=== PATIENT | male | born 1960 | race Caucasian/White ===

== ENCOUNTER 2017-01-19 14:10 | Inpatient (IN) ==
[2017-01-19] MEDS: DOPamine 800 MG/250 ML PREMIX IV SCH (14:25)
--- NOTE | 2017-01-19 15:19 | Emergency Department Note ---
IBhupendra Brooke, am scribing for, and in the presence of, Gabbi Bourgeois DO 15:17 . IBk Debra, DO, personally performed the services described in this documentation, ascribed by Radha Huizar in my presence, and it is both accurate and complete 519 . Arrival - Arrival Chief Complaint: Non-Specific Stated Complaint: hypotension ED Nursing Triage Note: pt was picked up from home with a b/p of 42/24. given one liter by ems. at outside facility pt was started on dopamine drip. 10mcg/kg/ min upon arrival. Mode of Arrival: Stretcher Limitations: Language Barrier (Non-verbal) Source: Patient, Family (Sister) Time Seen by Provider: 01/19/17 15:00 - History of Present Illness HPI Narrative: Patient is a 57 year old male brought into the ED by EMS, from [facility], with c/o low blood pressure. 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 His sister is in the room with him and giving the history. Sister says, on Sunday, he had an episode of dizziness and shaking. He went to see Dr. Hunt at [facility], yesterday, and he was having a difficult time urinating. Sister says when he finally did urinate, there was blood in it. He was sent here and seen in Non-Urgent and prescribed Cipro. This morning, Sister says the sitter reported that Patient became pale, started shaking, vomiting ,and then became lethargic. Sitter called EMS and upon arrival Patient's blood pressure was 42/ 24. EMS gave him Levaquin 750 and some fluids. Once he arrived at [facility], he was given Dopamine IV. His blood pressure upon arrival to the ED was 80/52. He has PMHx of HTN, hole in heart, depression, peripheral neuropathy, constipation, and chronic back pain. He has a pump to the [facility] where he receives Baclofin. Sister says the Baclofin was increased 20% yesterday. Allergies/Adverse Reactions: Allergies Allergy/AdvReac Type Severity Reaction Status Date / Time No Known Allergies Allergy Verified 04/25/16 10:42 Home Medications: Home Medications Medication Instructions Recorded Confirmed Type Aspirin [Ecotrin] 81 mg PO DAILY 04/17/16 01/18/17 History Tizanidine HCl [Zanaflex] 4 mg PO Q8H PRN 04/17/16 01/18/17 History Amlodipine Besylate 2.5 mg PO DAILY 01/18/17 01/18/17 History Baclofen [Baclofen] 10 mg PO TID PRN 01/18/17 01/18/17 History Ciprofloxacin HCl [Ciprofloxacin 500 mg PO BID #20 tablet 01/18/17 Rx Tab] Docusate Sodium 100 mg PO DAILY PRN 01/18/17 01/18/17 History Lisinopril [Lisinopril] 40 mg PO DAILY 01/18/17 01/18/17 History Methylphenidate HCl 15 mg PO DAILY 01/18/17 01/18/17 History [Methylphenidate Tab] Sertraline [Zoloft] 50 mg PO DAILY 01/18/17 01/18/17 History Temazepam [Restoril] 15 mg PO BEDTIME 01/18/17 01/18/17 History buPROPion HCl [Bupropion Xl] 150 mg PO DAILY 01/18/17 01/18/17 History Review of System - Review of System ROS unobtainable: other (Non-verbal) - Review of System Constitutional: Absent: fever Respiratory: Absent: respiratory distress Cardiovascular: Present: other (hypotension) Gastrointestinal: Present: vomiting Skin: Absent: rash Neurological: Present: other (dizziness) Medical,Surgical,& Family Hx - Medical History Cardio: History of: Hypertension, Cardiovascular Problems (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 DR HUNT.) Other: History of: Miscellaneous Medical Problems (DIS Pump with Baclofen PLS) - Surgical History Cardiac Surgeries: Sugical HX of: Cardiac Catheterization Abdominal Surgeries: Surgical HX of: Colonoscopy Orthopedic Surgeries: Surgical HX of;: Orthopedic Surgery (RT KNEE SCOPE) - Social History Smoking Status: Former smoker Frequency of Alcohol Use: None Type of Drug Use: None Exam Vital Signs: Vital Signs Temperature 97 F L 01/19/17 14:12 Pulse Rate 18 L 01/19/17 16:00 Respiratory Rate 18 01/19/17 16:00 Blood Pressure 99/65 01/19/17 16:00 O2 Sat by Pulse Oximetry 94 L 01/19/17 16:00 - General Exam limited due to: language barrier (Non-verbal) General appearance: alert, in no apparent distress - Head Head exam: Present: atraumatic, normocephalic - Eye Eye exam: Present: normal appearance, PERRL, EOMI - ENT ENT exam: Present: normal exam - Neck Neck exam: Present: normal inspection - Chest Chest inspection: Present: normal inspection, symmetric chest wall rise - Respiratory Respiratory exam: Present: normal lung sounds bilaterally - Cardiovascular Cardiovascular exam: Present: regular rate, normal rhythm - Abdominal Exam Abdominal exam: Present: soft, other (Baclofin pump RUQ). Absent: distention, tenderness - Extremities Exam Extremities exam: Present: normal inspection - Back Exam Back exam: Present: normal inspection - Neurological Exam Neurological exam: Present: alert - Skin Skin exam: Present: warm, dry, intact, normal color Course Course Narrative: spoke with hospitalist for admission for possible sepsis. uti. Disposition Clinical Impression: Urinary tract infection Case discussed with: patient Disposition: Still a Patient Condition: Stable Time of Disposition: 16:14
[2017-01-19] MEDS ORDERED: BACLOFEN 10 MG TABLET PO ONE (15:29)
[2017-01-19] MEDS ORDERED: ACETAMINOPHEN 325 MG TABLET PO PRN (17:14)
[2017-01-19] MEDS ORDERED: ONDANSETRON 4 MG/2 ML VIAL IV PRN (17:14)
[2017-01-19] MEDS ORDERED: ALBUTEROL 2.5 MG/3 ML NEB RESP TX PRN (17:14)
[2017-01-19] MEDS ORDERED: SODIUM CHLORIDE 0.9% 2,400 ML IV ONE (17:16)
--- NOTE | 2017-01-19 17:43 | Hospitalist History & Physical ---
<Sweetie Rosen - Last Filed: 01/19/17 17:41> Assessment and Plan (1) Hypotension Status: Acute Current Visit: Yes (2) Urinary tract infection Status: Acute Current Visit: Yes (3) Primary lateral sclerosis Status: Acute Current Visit: No History of Present Illness History of present illness: Mr. Osborn is a 57 year old male Home Medications Medication Instructions Recorded Confirmed Type Aspirin [Ecotrin] 81 mg PO DAILY 04/17/16 01/19/17 History Tizanidine HCl [Zanaflex] 4 mg PO Q8H PRN 04/17/16 01/19/17 History Amlodipine Besylate 2.5 mg PO DAILY 01/18/17 01/19/17 History Baclofen [Baclofen] 10 mg PO TID PRN 01/18/17 01/19/17 History Ciprofloxacin HCl [Ciprofloxacin 500 mg PO BID #20 tablet 01/18/17 01/19/17 Rx Tab] Docusate Sodium 100 mg PO DAILY PRN 01/18/17 01/19/17 History Lisinopril [Lisinopril] 40 mg PO DAILY 01/18/17 01/19/17 History Methylphenidate HCl 15 mg PO DAILY 01/18/17 01/19/17 History [Methylphenidate Tab] Sertraline [Zoloft] 50 mg PO DAILY 01/18/17 01/19/17 History Temazepam [Restoril] 15 mg PO BEDTIME 01/18/17 01/19/17 History buPROPion HCl [Bupropion Xl] 150 mg PO DAILY 01/18/17 01/19/17 History Allergies Allergy/AdvReac Type Severity Reaction Status Date / Time No Known Allergies Allergy Verified 04/25/16 10:42 Medical,Surgical,& Family Hx - Medical History Cardio: History of: Hypertension, Cardiovascular Problems (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 DR HUNT.) Other: History of: Miscellaneous Medical Problems (DIS Pump with Baclofen PLS) - Surgical History Cardiac Surgeries: Sugical HX of: Cardiac Catheterization Abdominal Surgeries: Surgical HX of: Colonoscopy Orthopedic Surgeries: Surgical HX of;: Orthopedic Surgery (RT KNEE SCOPE) - Social History Smoking Status: Former smoker Frequency of Alcohol Use: None Type of Drug Use: None Exam - Constitutional Vitals: Period Temp Pulse Resp BP Sys/Lopez Pulse Ox Last 24 Hr 79 16 102/67 97 Results - Labs Labs: Labs reviewed from outside facility WBC 16.6 H/H 12.1 35.7 <Clark Alcantara - Last Filed: 01/19/17 18:50> Assessment and Plan (1) Sepsis Status: Acute Assessment and plan: Patient was given Levaquin in the emergency department. Rocephin has been added. Follow-up cultures. Likely source is urinary. Current Visit: Yes (2) Urinary tract infection Status: Acute Assessment and plan: Follow-up urine culture collected in the emergency department yesterday. Patient receiving Levaquin and Rocephin. Current Visit: Yes (3) Primary lateral sclerosis Status: Chronic Assessment and plan: Patient on multiple Antispas stick medications including baclofen and other muscle relaxants Current Visit: No History of Present Illness Chief complaint: dizziness, low BP, vomiting History of present illness: Mr. Osborn is a 57 year old male with a history of primary lateral sclerosis and presented to the emergency department in [facility] with worsening dizziness and vomiting with low blood pressure. The patient is nonverbal and accompanied by his sister who is a nurse. She reports that her brother has urinary tract infection that started a few days ago and was treated with Cipro however he has not improved. He began to have significant dizziness with nausea and vomiting and was found to have low blood pressure was brought to the emergency department for further evaluation and treatment. He was found to be very hypotensive and was given IV fluids and started on dopamine. His symptoms are severe, persistent and progressive. His sister also reports a 20 pound weight loss over the last month with decreased oral intake. The patient is able to chew and swallow his food but needs assistance with feedings. She also reports that he has 2 wounds on his buttock that are clean stage II wounds without drainage and do not appear infected. Patient denies any pain or complaints. At the time of my evaluation he was on dopamine and had a blood pressure systolic 100. Throughout this acute illness, the patient has not been tachycardic and is in normal sinus rhythm with a rate in the 60s-70s. Of note the patient also has an implanted baclofen pump which has been increased by his automotive painter over the last 48 hours. This may also be contributing to his hypotension however his symptoms began on Sunday, before his baclofen pump was accessed or increased. At this time I feel the patient has sepsis secondary to urinary tract infection and the sepsis protocols will be followed including fluid bolus and lactic acid testing which was not performed at the outlying facility or in our emergency department. Medical,Surgical,& Family Hx - Social History Marital Status: Lives With:: Sibling Functional capacity: wheelchair bound 12 point system: reviewed and no additional remarkable complaints except as stated - Constitutional Constitutional: Present: anorexia, chills, fever(s) - Gastrointestinal Gastrointestinal: Present: vomiting Exam - Constitutional Vitals: Period Temp Pulse Resp BP Sys/Lopez Pulse Ox Last 24 Hr 79 16 102/67 97 Exam: Constitutional System: Mild distress. No tremulousness. Patient is nonverbal. Head: Normocephalic, atraumatic. Ears, Nose and Throat System: No pain or tenderness. No epistaxis or discharge Eyes System: Pupils equal, round, and reactive. Extraocular muscles intact. Neck: Supple, without adenopathy, No jugular venous distention. Respiratory System: Chest clear to auscultation. Cardiovascular System: Heart with regular rate and rhythm. No murmur. GI System: Abdomen soft, nontender. Normo active bowel sounds present. Musculoskeletal System: limbs with no pedal edema. Full distal pulses. Neurological System: Spasticity noted. Limited mobility. Psychiatric System: Patient is nonverbal. Results - Labs Lab Results: I have reviewed the past 24 hour labs Sepsis - Sepsis Classification of Sepsis: Severe Sepsis - Physical Exam Respiratory exam: clear to auscultation bilaterally Capillary Refill: Less Than 3 Seconds Peripheral pulses: Radial (L): 3+/4+, Radial (R): 3+/4+, Dorsalis Pedis (L) PM: 3+/4+, Dorsalis Pedis (R) PM: 3+/4+, Posterior Tibialis (L): 3+/4+, Posterior Tibialis (R): 3+/4+ Cardiovascular exam: regular rate and rhythm Skin exam: normal color
[2017-01-19 18:04] LABS: Apearance,Urine CLOUDY (Clear); Bacteria,Urine Occasional /HPF (Few); Bilirubin,Urine Negative (Negative); Blood, Urine Large mg/dL (Negative); Glucose,Urine (UA) Negative (Negative); Ketones,Urine Negative (Negative); Nitrite,Urine Negative (Negative); Protein,Urine 30 MG/DL; RBC,Urine 2 /HPF (0-4); Squamous Epithelial Cell,Urine Occasional /HPF (0-10); Urine Color Yellow (Yellow); Urine Specific Gravity 1.003 (1.001-1.035); Urine Urobilinogen < 2.0 EU/DL (0.2-1.0); WBC,Urine 29 /HPF (0-6)
[2017-01-19] MEDS: cefTRIAXone 1,000 MG in SODIUM CHLORIDE 0.9% 100 ML IV SCH (18:31)
[2017-01-19] MEDS: tiZANidine 4 MG TABLET PO PRN (18:31)
[2017-01-19] MEDS: FAMOTIDINE 20 MG/2 ML VIAL IV SCH (18:31)
[2017-01-19] MEDS: BACLOFEN 10 MG TABLET PO PRN (18:31)
[2017-01-19] MEDS: LACTATED RINGERS 1,000 ML IV SCH (18:42)
[2017-01-19] MEDS: ENOXAPARIN 40 MG/0.4 ML SYRINGE SUBCUT SCH (22:00)
[2017-01-19] MEDS: TEMAZEPAM 15 MG CAPSULE PO SCH (22:00)
[2017-01-20] MEDS: LACTATED RINGERS 1,000 ML IV SCH ×4 (02:58→22:08)
[2017-01-20 05:45] LABS: Basophils % 0.1 % (0.0-0.8); Hemoglobin 12.2 GM/DL (14.0-18.0); Immature Granulocytes % 0.9 %; Immature Granulocytes Absolute 0.15 #; Mean Corpuscular HGB Conc 33.9 GM/DL (32-36); Mean Corpuscular Hemoglobin 28 PG (27-34); Mean Corpuscular Volume 81.1 FL (87-102); Mean Platelet Volume 9.5 FL (9.6-12.0); Monocytes % 6.1 % (1.7-12.7); Neutrophils # 14.3 10*3/uL (1.4-7.4); Neutrophils % 86.9 % (38.7-73.9); Platelet Count 261 T/CUMM (130-400); Red Blood Count 4.44 MC/CUMM (3.8-5.5); Red Cell Distribution Width 13.3 % (9.3-17.3); White Blood Count 16.5 T/CUMM (4-12)
[2017-01-20] MEDS: FAMOTIDINE 20 MG/2 ML VIAL IV SCH ×2 (06:15→18:21)
[2017-01-20 06:18] LABS: Albumin 2.9 G/DL (3.4-5.0); Bilirubin,Total 0.5 MG/DL (0.2-1.0); Calcium 9.8 MG/DL (8.5-10.1); Magnesium 2.1 MG/DL (1.8-2.4); Osmolality,Calculated 294.6 MOS/KG (273-304); Potassium 4.4 MMOL/L (3.5-5.1); Total Protein 5.7 G/DL (6.4-8.3)
[2017-01-20] MEDS: DOPamine 800 MG/250 ML PREMIX IV SCH ×2 (06:23→19:46)
[2017-01-20 07:56] LABS: Band Neutrophils 12 % (0-10); Burr Cells Slight; Hypochromasia Slight; Lymphocytes 5 % (20-55); Platelet Estimate Adequate; Segmented Neutrophils 82 % (50-85); Total Cells Counted 100
[2017-01-20] MEDS: ASPIRIN EC 81 MG TABLET PO SCH (08:59)
[2017-01-20] MEDS: buPROPion XL 150 MG TABLET PO SCH (08:59)
[2017-01-20] MEDS: SERTRALINE 50 MG TABLET PO SCH (09:00)
--- NOTE | 2017-01-20 10:07 | Hospitalist Progress Note ---
Assessment and Plan (1) Urinary tract infection Status: Acute Assessment and plan: Discussion with microbiology patient is going gram-positive cocci in the urine no report of blood growth at this time. Patient remains on dopamine. Latest blood pressure drop was primary from the infection or any other causes including autonomic dyscontrol it is not clear at this time. Continue dopamine. Verify isolate. Blood cultures. Current Visit: Yes (2) Hypotension Status: Acute Assessment and plan: Continue dopamine. As of now mean arterial pressures above 65. Patient is awake not able to communicate. Current Visit: Yes (3) Sepsis Status: Acute Assessment and plan: To set of blood cultures drawn on vancomycin to the ceftriaxone. Get consultation with the pharmacy for vancomycin pharmacokinetics. Current Visit: Yes (4) Primary lateral sclerosis Status: Chronic Assessment and plan: Continue supportive care. Current Visit: No Hospitalist: Subjective Interval history: Patient is seen and examined and chart has been reviewed. He cannot phonate words. History of 4 primary lateral sclerosis with significant compromise. Family member at the bedside is answering most of the questions. He was admitted to the hospital with hypotension and known urinary tract infection. As of now, cultures on the urine is no growth. Unfortunately Gram stain is not usually done to direct the treatment.. Discussion with microbiology laboratory at the plate seems to be demonstrating gram-positive cocci growing. Final identification is pending. Exam - Constitutional Vitals: Period Temp Pulse Resp BP Sys/Lopez Pulse Ox Last 24 Hr 97.5 F-98.2 F 50-79 9-22 74-144/44-80 94-100 General appearance: normal weight - Head Head exam: Present: normocephalic, atraumatic - Eye Eye exam: Present: EOMI Pupils: Present: PATRICIA - ENT ENT exam: Present: normal exam, other (Patient cannot phonate due to his neurologic deficit is from lateral sclerosis) - Neck Neck exam: Present: other (No JVD no adenopathy) - Respiratory Respiratory exam: Present: other (Poor inspiratory pool) - Cardiovascular Cardiovascular exam: Present: regular rate and rhythm - GI/Abdominal GI/Abdominal exam: Present: normal bowel sounds, soft - Extremities Exam Extremities exam: Present: other (Generalized weakness patient has generalized neurologic deficits from lateral sclerosis) Results - Labs CBC & BMP: 01/20/17 05:13 01/20/17 05:13 Lab Results: I have reviewed the past 24 hour labs (Noted leukocytosis modest chronic anemia. Urine culture growing gram-positive cocci finally)
[2017-01-20] MEDS: VANCOMYCIN INJ 750 MG in SODIUM CHLORIDE 0.9% 250 ML IV SCH (12:35)
[2017-01-20] MEDS: METHYLPHENIDATE PO SCH (12:35)
[2017-01-20] MEDS: cefTRIAXone 1,000 MG in SODIUM CHLORIDE 0.9% 100 ML IV SCH (18:21)
[2017-01-20] MEDS: ENOXAPARIN 40 MG/0.4 ML SYRINGE SUBCUT SCH (22:03)
[2017-01-20] MEDS: TEMAZEPAM 15 MG CAPSULE PO SCH (22:03)
[2017-01-21] MEDS: VANCOMYCIN INJ 750 MG in SODIUM CHLORIDE 0.9% 250 ML IV SCH ×2 (00:15→12:08)
[2017-01-21] MEDS: BACLOFEN 10 MG TABLET PO PRN ×2 (00:18→20:52)
[2017-01-21] MEDS: tiZANidine 4 MG TABLET PO PRN ×2 (00:18→20:52)
[2017-01-21] MEDS: LACTATED RINGERS 1,000 ML IV SCH ×4 (02:25→16:43)
[2017-01-21] MEDS: FAMOTIDINE 20 MG/2 ML VIAL IV SCH ×2 (06:22→16:33)
--- NOTE | 2017-01-21 09:23 | Hospitalist Progress Note ---
Assessment and Plan (1) Urinary tract infection Status: Acute Assessment and plan: Discussion with microbiology patient is going gram-positive cocci in the urine no report of blood growth at this time. Patient remains on dopamine. Latest blood pressure drop was primary from the infection or any other causes including autonomic dyscontrol it is not clear at this time. Continue dopamine. Verify isolate. Blood cultures. Current Visit: Yes Qualifiers: Urinary tract infection type: acute cystitis Hematuria presence: without hematuria Qualified Code(s): N30.00 - Acute cystitis without hematuria (2) Hypotension Status: Acute Assessment and plan: Continue dopamine. Attempt to taper the dopamine. If the patient tolerates being off dopamine she can be transferred to [facility]. We will try to assess for other sites of infection including low respiratory tract. Gentleman does have neurologic condition therefore aspiration is a high risk. Current Visit: Yes (3) Sepsis Status: Acute Assessment and plan: To set of blood cultures drawn on vancomycin to the ceftriaxone. Get consultation with the pharmacy for vancomycin pharmacokinetics. Current Visit: Yes (4) Primary lateral sclerosis Status: Chronic Assessment and plan: Continue supportive care. Try feeding today. I am informed she is able to get some liquids should not have problems solid foods. If there is any suggestion of swallowing problem will get speech therapy evaluation. Current Visit: No Hospitalist: Subjective Interval history: Patient has been seen and examined today. No distress noted. No family members at the bedside during the time of evaluation. Normal admitted to the hospital with hypotension thought to have urinary tract infection and urosepsis was suspected. The only thing that grew on urine was a gram-positive cocci that at this point is pending evaluation. Clinically patient seemed to be mentating well on lower doses of pressors. These will continue to be tapered down and if he cannot tolerate blood pressures without precedent transferring him to [facility] will be appropriate. He maintains a leukocytosis of 16.5 today no obvious signs of infection declared other than what was suspected of admission. Should be noted over that the patient is on dopamine margination can happen or other sympathomimetic noticed that he is on Ringer's lactate. Want him to advance on meals. If there is any swallowing problems and speech therapy should be involved. The gentleman should also have a chest x-ray to evaluate for lower respiratory infection. Exam - Constitutional Vitals: Period Temp Pulse Resp BP Sys/Lopez Pulse Ox Last 24 Hr 97.9 F-98.9 F 51-80 8-25 87-137/46-86 93-100 General appearance: normal weight, no acute distress - Head Head exam: Present: normocephalic, atraumatic - Eye Eye exam: Present: EOMI Pupils: Present: PATRICIA - ENT ENT exam: Present: normal oropharynx - Neck Neck exam: Present: normal inspection - Respiratory Respiratory exam: Present: clear to auscultation bilaterally, other (Poor inspiratory pool) - Cardiovascular Cardiovascular exam: Present: regular rate and rhythm - GI/Abdominal GI/Abdominal exam: Present: normal bowel sounds, soft - Extremities Exam Extremities exam: Present: other (Generalized weakness patient has lateral sclerosis (Miley Gehrig's disease)) - Neurological Exam Neurological exam: Present: other (Miley Gehrig's disease (primary lateral sclerosis)) - Psychiatric Psychiatric exam: Present: other (Subdued affect the patient cannot communicate. He is to recept well.) - Skin Skin exam: Present: normal color, warm, dry Results - Labs CBC & BMP: 01/20/17 05:13 01/20/17 05:13 Lab Results: I have reviewed the past 24 hour labs
--- NOTE | 2017-01-21 09:44 | XRay Report ---
XR chest 1V portable Indication: Pneumonia Comparison: 27 June 2016 Findings: The heart and mediastinum are normal in size and configuration. The pulmonary vascularity is normal in caliber. No lung infiltrates, effusions, pneumothorax or other abnormality is demonstrated. Impression: No acute cardiopulmonary findings. PROCEDURE INTERPRETED AT [facility] DEPARTMENT OF RADIOLOGY Final Report Signed by: Dr. Mohinder Subramanian
[2017-01-21] MEDS: SERTRALINE 50 MG TABLET PO SCH (09:51)
[2017-01-21] MEDS: ASPIRIN EC 81 MG TABLET PO SCH (09:51)
[2017-01-21] MEDS: buPROPion XL 150 MG TABLET PO SCH (09:51)
[2017-01-21] MEDS: METHYLPHENIDATE PO SCH (09:51)
[2017-01-21] MEDS: DOPamine 800 MG/250 ML PREMIX IV SCH (15:17)
[2017-01-21] MEDS: cefTRIAXone 1,000 MG in SODIUM CHLORIDE 0.9% 100 ML IV SCH (16:33)
[2017-01-21] MEDS: ENOXAPARIN 40 MG/0.4 ML SYRINGE SUBCUT SCH (20:52)
[2017-01-21] MEDS: TEMAZEPAM 15 MG CAPSULE PO SCH (20:55)
[2017-01-22] MEDS: VANCOMYCIN INJ 750 MG in SODIUM CHLORIDE 0.9% 250 ML IV SCH (00:01)
[2017-01-22] MEDS: LACTATED RINGERS 1,000 ML IV SCH ×2 (00:06→03:35)
[2017-01-22 04:48] LABS: Basophils % 0.3 % (0.0-0.8); Eosinophils # 0.1 10*3/uL (0.0-0.87); Eosinophils % 1.7 % (0.00-10.9); Hematocrit 30.5 VOL% (42.0-52.0); Hemoglobin 10.3 GM/DL (14.0-18.0); Immature Granulocytes % 0.5 %; Immature Granulocytes Absolute 0.03 #; Lymphocytes # 1.7 10*3/uL (1.4-4.0); Mean Corpuscular HGB Conc 33.8 GM/DL (32-36); Mean Corpuscular Hemoglobin 27 PG (27-34); Mean Corpuscular Volume 80.9 FL (87-102); Monocytes # 0.7 10*3/uL (0.11-0.8); Monocytes % 9.9 % (1.7-12.7); Neutrophils % 61.6 % (38.7-73.9); Platelet Count 208 T/CUMM (130-400); Red Blood Count 3.77 MC/CUMM (3.8-5.5); Red Cell Distribution Width 13.7 % (9.3-17.3); White Blood Count 6.6 T/CUMM (4-12)
[2017-01-22 05:27] LABS: Calcium 8.6 MG/DL (8.5-10.1); Magnesium 1.8 MG/DL (1.8-2.4); Osmolality,Calculated 288.7 MOS/KG (273-304)
[2017-01-22] MEDS ORDERED: POTASSIUM CHLORIDE 20 MEQ TABLET PO ONE (05:53)
[2017-01-22] MEDS: FAMOTIDINE 20 MG/2 ML VIAL IV SCH ×2 (05:54→17:36)
[2017-01-22] MEDS: buPROPion XL 150 MG TABLET PO SCH (08:36)
[2017-01-22] MEDS: SERTRALINE 50 MG TABLET PO SCH (08:36)
[2017-01-22] MEDS: ASPIRIN EC 81 MG TABLET PO SCH (08:36)
--- NOTE | 2017-01-22 08:44 | Hospitalist Progress Note ---
Assessment and Plan (1) Urinary tract infection Status: Acute Assessment and plan: Today microbiology reports has consumed MRSA as the organism in the urine obtained at admission. Clinically patient is doing well he is off pressors. He has been on vancomycin which will continue for now until we verify clearance of the infection in the urine. A repeat urinalysis and urine culture be done today. Patient does have MRSA in the nares. Mupirocin will be instilled in the nares for 14 days per month 3 months consecutively. Current Visit: Yes Qualifiers: Urinary tract infection type: acute cystitis Hematuria presence: without hematuria Qualified Code(s): N30.00 - Acute cystitis without hematuria (2) Hypotension Status: Acute Assessment and plan: Patient is currently on pressors with a robust blood pressure. He is awake does try to interact. She will be transferred to a monitored bed at this point. Current Visit: Yes (3) Sepsis Status: Acute Assessment and plan: This is currently resolved. Patient did have MRSA in the urine at admission will verify clearance of the urine with repeat cultures. Need vancomycin for the meantime discontinue ceftriaxone. She will be transferred to a monitored bed. Current Visit: Yes (4) Primary lateral sclerosis Status: Chronic Assessment and plan: Continue supportive care. Try feeding today. I am informed she is able to get some liquids should not have problems solid foods. If there is any suggestion of swallowing problem will get speech therapy evaluation. Current Visit: No Hospitalist: Subjective Interval history: Patient has been seen interviewed and examined and chart has been reviewed. Finally we got microbiology identification of urine infection which is MRSA. Patient's renal function is normal. I plan to repeat a urine assessment today with urinalysis and urine culture again. I will leave him on vancomycin in the meantime discontinue the ceftriaxone is noted swabs are positive for MRSA. Patient will be started on mupirocin 1 application to anterior nares for 14 days a month 3 months consecutively. That information that prior to admission patient's baclofen was also increased by 20%. Whether this contributed to issues of hypertension can be considered. He has a pump in which baclofen is being instilled for spasms. Exam - Constitutional Vitals: Period Temp Pulse Resp BP Sys/Lopez Pulse Ox Last 24 Hr 97.6 F-99.0 F 53-95 12-26 90-144/50-90 93-99 General appearance: normal weight - Head Head exam: Present: normocephalic, atraumatic - Eye Eye exam: Present: EOMI Pupils: Present: PATRICIA - ENT ENT exam: Present: normal exam - Neck Neck exam: Present: normal inspection - Respiratory Respiratory exam: Present: clear to auscultation bilaterally - Cardiovascular Cardiovascular exam: Present: regular rate and rhythm - GI/Abdominal GI/Abdominal exam: Present: normal bowel sounds, soft - Extremities Exam Extremities exam: Present: other (Generalized weakness patient does have lateral sclerosis some spasms associated with this.) - Neurological Exam Neurological exam: Present: other (Patient does have good medical receptionist where expression is hampered by lateral sclerosis.) - Psychiatric Psychiatric exam: Present: other (Will smile and try to respond to you but there is no phonation) - Skin Skin exam: Present: normal color, warm, dry Results - Labs CBC & BMP: 01/22/17 04:23 01/22/17 04:23 Lab Results: I have reviewed the past 24 hour labs (Noted hypokalemia of 3.0 magnesium of 1.8. Will supplement potassium per protocol)
[2017-01-22] MEDS ORDERED: SKIN HEALING OINT (AQUAPHOR) 50 GM TUBE TOP PRN (11:30)
[2017-01-22] MEDS: VANCOMYCIN INJ 1,000 MG in SODIUM CHLORIDE 0.9% 250 ML IV SCH (12:22)
[2017-01-22] MEDS: METHYLPHENIDATE PO SCH (12:22)
[2017-01-22] MEDS: MUPIROCIN 2% OINT 22 GM TUBE TOP SCH ×2 (12:22→22:00)
[2017-01-22 16:40] LABS: Apearance,Urine CLEAR (Clear); Bacteria,Urine Occasional /HPF (Few); Bilirubin,Urine Negative (Negative); Blood, Urine Moderate mg/dL (Negative); Glucose,Urine (UA) Negative (Negative); Ketones,Urine Negative (Negative); Mucus,Urine Occasional /LPF (Occasional); Nitrite,Urine Negative (Negative); Protein,Urine Negative; RBC,Urine 56 /HPF (0-4); Urine Color Straw (Yellow); Urine Specific Gravity 1.009 (1.001-1.035); Urine Urobilinogen < 2.0 EU/DL (0.2-1.0); WBC,Urine 22 /HPF (0-6)
[2017-01-22] MEDS: DOPamine 800 MG/250 ML PREMIX IV SCH (16:49)
[2017-01-22] MEDS ORDERED: DOCUSATE SODIUM 100 MG CAPSULE PO PRN (18:33)
[2017-01-22] MEDS ORDERED: SODIUM PHOSPHATE ENEMA 133 ML BOTTLE RECTAL ONE (21:46)
[2017-01-22] MEDS: ENOXAPARIN 40 MG/0.4 ML SYRINGE SUBCUT SCH (21:59)
[2017-01-22] MEDS: TEMAZEPAM 15 MG CAPSULE PO SCH (21:59)
[2017-01-23] MEDS: VANCOMYCIN INJ 1,000 MG in SODIUM CHLORIDE 0.9% 250 ML IV SCH ×2 (00:59→11:39)
[2017-01-23] MEDS: FAMOTIDINE 20 MG/2 ML VIAL IV SCH ×2 (05:58→17:06)
[2017-01-23] MEDS: METHYLPHENIDATE PO SCH (09:10)
[2017-01-23] MEDS: SERTRALINE 50 MG TABLET PO SCH (09:10)
[2017-01-23] MEDS: buPROPion XL 150 MG TABLET PO SCH (09:10)
[2017-01-23] MEDS: LACTULOSE 20 GM/30 ML UDCUP PO SCH (09:10)
[2017-01-23] MEDS: MUPIROCIN 2% OINT 22 GM TUBE TOP SCH ×2 (09:10→20:05)
[2017-01-23] MEDS: ASPIRIN EC 81 MG TABLET PO SCH (09:10)
[2017-01-23] MEDS ORDERED: POTASSIUM CHLORIDE RIDER 10 MEQ in PREMIX 1 EACH IV PRN (14:39)
--- NOTE | 2017-01-23 15:37 | Infectious Disease Consult ---
Assessment and Plan (1) Urinary tract infection Status: Acute Assessment and plan: It seems this is improved. He has been afebrile and his leukocytosis has resolved. Recommendations: Agree with use of vancomycin. At any point we can switch to Bactrim double strength 1 tablet twice a day. The patient can complete 7 days of treatment for his urinary tract infection. Thank you very much for the consult. Discussed with mother at bedside. Current Visit: Yes Qualifiers: Urinary tract infection type: acute cystitis Hematuria presence: without hematuria Qualified Code(s): N30.00 - Acute cystitis without hematuria (2) Primary lateral sclerosis Status: Chronic Current Visit: No History of Present Illness Chief complaint: MRSA UTI History of present illness: Mr. Osborn is a 57 year old male With PLS presented to the hospital last Sunday with nausea vomiting and lethargy. He had been diagnosed with a UTI a few days prior and was taking Cipro. The mother is the historian (though a poor one) and she is not sure what was the cause of his UTI. The patient does not have Saldana catheter when he is at home. When he came in he was hypotensive and there was concern for possible sepsis. He was started on empiric broad-spectrum antibiotics. Blood cultures have been negative. 2 urine cultures have come back positive for MRSA. He still on vancomycin and I am asked to advise management. Patient feels much better than when he first came in. He has not had any fever since admission. He communicates with an iPad as he is aphasic. He does understand everything that's said to him however. Home Medications Medication Instructions Recorded Confirmed Type Aspirin [Ecotrin] 81 mg PO DAILY 04/17/16 01/19/17 History Tizanidine HCl [Zanaflex] 4 mg PO Q8H PRN 04/17/16 01/19/17 History Amlodipine Besylate 2.5 mg PO DAILY 01/18/17 01/19/17 History Baclofen [Baclofen] 10 mg PO TID PRN 01/18/17 01/19/17 History Ciprofloxacin HCl [Ciprofloxacin 500 mg PO BID #20 tablet 01/18/17 01/19/17 Rx Tab] Docusate Sodium 100 mg PO DAILY PRN 01/18/17 01/19/17 History Lisinopril [Lisinopril] 40 mg PO DAILY 01/18/17 01/19/17 History Methylphenidate HCl 15 mg PO DAILY 01/18/17 01/19/17 History [Methylphenidate Tab] Sertraline [Zoloft] 50 mg PO DAILY 01/18/17 01/19/17 History Temazepam [Restoril] 15 mg PO BEDTIME 01/18/17 01/19/17 History buPROPion HCl [Bupropion Xl] 150 mg PO DAILY 01/18/17 01/19/17 History Allergies Allergy/AdvReac Type Severity Reaction Status Date / Time No Known Allergies Allergy Verified 04/25/16 10:42 12 point system: reviewed and no additional remarkable complaints except as stated (Per HPI) Medical,Surgical,& Family Hx - Medical History Cardio: History of: Hypertension, Cardiovascular Problems (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 DR HUNT.) Other: History of: Miscellaneous Medical Problems (DIS Pump with Baclofen PLS) - Surgical History Cardiac Surgeries: Sugical HX of: Cardiac Catheterization, Cardiac Surgery ( atrial septal defect repair 07/2015) Abdominal Surgeries: Surgical HX of: Colonoscopy Reproductive Surgeries: Surgical HX of;: Genitourinary Surgery (neurogenic bladder, botox infusion 07/2016) Orthopedic Surgeries: Surgical HX of;: Orthopedic Surgery (RT KNEE SCOPE) - Social History Smoking Status: Former smoker Frequency of Alcohol Use: None Type of Drug Use: None Infectious Disease Exam H&P - Constitutional Vitals: Vital Signs Temp Pulse Resp BP Pulse Ox 98.4 F 62 18 132/80 94 L 01/23/17 12:00 01/23/17 12:00 01/23/17 12:00 01/23/17 12:00 01/23/17 07:38 Intake and Output 01/22/17 01/23/17 01/23/17 23:59 07:59 15:59 Intake Total 240 / 240 250 / 250 570 / 570 Output Total 60 / 60 1000 / 1000 600 / 600 Balance 180 / 180 -750 / -750 -30 / -30 Intake: IV 250 / 250 250 / 250 Vancomycin Inj 1,000 mg 250 / 250 250 / 250 In Ns 250 ml @ 250 mls/hr IV Q12H [facility] Rx#: [id number] Oral 240 / 240 320 / 320 Output: Urine 60 / 60 1000 / 1000 600 / 600 Other: Voiding Method Indwelling Catheter Indwelling Catheter # Bowel Movements 1 Exam: General: Patient relatively comfortable, non-toxic appearing HEENT: Mucous membranes pink and moist, anicteric acyanotic, PATRICIA, no oropharyngeal exudates Neck: Supple, no thyroid gland enlargement, no lymphadenopathy Respiratory system: Breath sounds vesicular, no crepitations or wheezes Cardiovascular: Normal S1 and S2, no murmurs appreciated Abdomen: Normal bowel sounds, soft nontender throughout, no organomegaly or mass Genitourinary: No suprapubic pain or bladder distention, clear urine from Saldana catheter Extremities: no edema Skin: No rash Reports - Labs CBC & BMP: 01/22/17 04:23 01/22/17 04:23 Labs: Laboratory Results - last 24 hr 01/22/17 16:20 Urine Color Straw Urine Appearance Clear Urine pH 6.0 Ur Specific [place] 1.009 Urine Protein Negative Urine Glucose (UA) Negative Urine Ketones Negative Urine Blood Moderate Urine Nitrate Negative Urine Bilirubin Negative Urine Urobilinogen < 2.0 H Urine Leukocytes Moderate H Urine RBC 56 Urine WBC 22 Urine Bacteria Occasional Urine Mucus Occasional Ur Culture Indicated? Results to follow - Reports Microbiology: Microbiology 01/22/17 Unknown Urine Culture - Preliminary Urine,Voided No Growth at 12 hours. 01/20/17 10:38 Blood Culture - Preliminary Blood No growth at 3 days 01/20/17 10:38 Blood Culture - Preliminary Blood No growth at 3 days 01/19/17 17:51 Blood Culture - Preliminary Blood No growth at 3 days 01/19/17 17:51 Blood Culture - Preliminary Blood No growth at 3 days - Diagnostic Findings Procedure: Chest x-ray: report reviewed by me (No acute findings)
[2017-01-23 15:54] LABS: Osmolality,Calculated 287.7 MOS/KG (273-304); Potassium 3.4 MMOL/L (3.5-5.1)
--- NOTE | 2017-01-23 16:57 | Hospitalist Progress Note ---
Assessment and Plan (1) Urinary tract infection Status: Acute Current Visit: Yes Qualifiers: Urinary tract infection type: acute cystitis Hematuria presence: without hematuria Qualified Code(s): N30.00 - Acute cystitis without hematuria (2) Hypotension Status: Acute Current Visit: Yes (3) Sepsis Status: Acute Current Visit: Yes (4) Primary lateral sclerosis Status: Chronic Current Visit: No Hospitalist: Subjective Interval history: No acute events overnight. Urine culture wit MRSA. ID consulted, agree with vancomycin but can switch to bactrim. Thanks for the assistance. Possible discharge tomorrow. Exam - Constitutional Vitals: Period Temp Pulse Resp BP Sys/Lopez Pulse Ox Last 24 Hr 97.6 F-98.6 F 49-82 16-20 127-152/54-85 93-97 General appearance: normal weight - Head Head exam: Present: normocephalic, atraumatic - Eye Eye exam: Present: EOMI Pupils: Present: PATRICIA - ENT ENT exam: Present: normal exam - Neck Neck exam: Present: normal inspection - Respiratory Respiratory exam: Present: clear to auscultation bilaterally. Absent: rhonchi, wheezes - Cardiovascular Cardiovascular exam: Present: regular rate and rhythm - GI/Abdominal GI/Abdominal exam: Present: normal bowel sounds, soft. Absent: tenderness, rebound - Extremities Exam Extremities exam: Present: normal inspection - Back Exam Back exam: Present: normal inspection - Neurological Exam Neurological exam: Present: alert, oriented X3 - Psychiatric Psychiatric exam: Present: normal affect, normal mood - Skin Skin exam: Present: warm, intact Results - Labs CBC & BMP: 01/22/17 04:23 01/23/17 14:18
[2017-01-23] MEDS: POTASSIUM CHLORIDE 20 MEQ TABLET PO PRN ×2 (17:05→18:17)
[2017-01-23] MEDS: TEMAZEPAM 15 MG CAPSULE PO SCH (20:05)
[2017-01-23] MEDS: ENOXAPARIN 40 MG/0.4 ML SYRINGE SUBCUT SCH (20:05)
[2017-01-24] MEDS: VANCOMYCIN INJ 1,000 MG in SODIUM CHLORIDE 0.9% 250 ML IV SCH ×2 (01:21→11:47)
[2017-01-24] MEDS: POTASSIUM CHLORIDE 20 MEQ TABLET PO PRN (01:22)
[2017-01-24] MEDS: FAMOTIDINE 20 MG/2 ML VIAL IV SCH (05:33)
[2017-01-24] MEDS: buPROPion XL 150 MG TABLET PO SCH (08:42)
[2017-01-24] MEDS: LACTULOSE 20 GM/30 ML UDCUP PO SCH (08:42)
[2017-01-24] MEDS: MUPIROCIN 2% OINT 22 GM TUBE TOP SCH (08:42)
[2017-01-24] MEDS: SERTRALINE 50 MG TABLET PO SCH (08:42)
[2017-01-24] MEDS: ASPIRIN EC 81 MG TABLET PO SCH (08:42)
[2017-01-24] MEDS: METHYLPHENIDATE PO SCH (08:42)
[2017-01-24 10:47] VITALS: BP 154/87
--- NOTE | 2017-01-24 10:52 | Event Note ---
Patient doing fine and is anxious to go home. Afebrile. Urine from Saldana clear. Catheter can be taken out today and patient can go home on Bactrim for 5 days 1 double strength tablet twice daily.
--- NOTE | 2017-01-24 12:06 | Discharge Summary ---
<Lucinda Mccoyda - Last Filed: 01/24/17 12:26> Hospital Course - Hospital Course Hospital Course: This is a very unfortunate 57 year old male that presented to the ED at [facility] as a lateral transfer from [facility] for evaluation of hypotension. The patient has a rather complex medical history significant for primary lateral sclerosis, hypertension, depression, and peripheral neuropathy. Apparently, the patient was in the shower when he suddenly became pale, started shaking, vomited, then became lethargic. His caregiver became alarmed and called for emergency assistance. The patient was recently seen here at [facility] where he was treated for what was thought to be a urinary tract infection. In addition, he is followed Dr. Tucker at the [facility]; He was seen there on the day prior to presentation where his Baclofen pump was adjusted and increased by 20%. At the time of EMS arrival at his home; the patient was noted to be grossly hypotensive with a blood pressure of 42/24. He was given fluids and transported to the ED at [facility]. He remained hypotensive at [facility] and was subsequently started on a Dopamine infusion. He was subsequently transferred to [facility] for continuation of care. Upon arrival to [facility], the patient was hypotensive with a blood pressure of 80/50. Urinalysis was positive for urinary tract infection. The patient was admitted to critical care under the hospitalist service for medical management. Empiric antibiotics and vasoactive drugs were started. The patients condition gradually improved. Urine cultures returned significant for methicillin- resistant staphylococcus aureus and an infectious disease consult was requested. His condition improved. His vital signs are stable and he has experienced no fever overnight. Today, we feel that he is appropriate for discharge home with follow-up with his PCP as directed. He will continue Bactrim as ordered per infectious disease order. Discharge Plan - Discharge Data Disposition: Home Health Service - Discharge Medications New Acetaminophen Tab [Tylenol Tab] 650 mg PO Q4H PRN #0 tablet PRN Reason: Fever, Headache, Mild Pain Lisinopril [Prinivil] 10 mg PO DAILY #30 tablet Mupirocin 2% Oint [Bactroban 2% Oint] 1 applic TOP BID #7 applic Potassium 99 mg PO DAILY #3 tablet Sulfameth/Trimeth 800-160 Tab [Bactrim DS Tab] 1 tablet PO BID #14 tablet Lactulose Liquid [Chronulac] 10 gm PO DAILY Continue Tizanidine HCl [Zanaflex] 4 mg PO Q8H PRN PRN Reason: Muscle Pain Aspirin [Ecotrin] 81 mg PO DAILY Methylphenidate HCl [Methylphenidate Tab] 15 mg PO DAILY buPROPion HCl [Bupropion Xl] 150 mg PO DAILY Temazepam [Restoril] 15 mg PO BEDTIME Sertraline [Zoloft] 50 mg PO DAILY Baclofen 10 mg PO TID PRN PRN Reason: Pain Docusate Sodium 100 mg PO DAILY PRN PRN Reason: Constipation Discontinued Lisinopril [Lisinopril] 40 mg PO DAILY Amlodipine Besylate 2.5 mg PO DAILY Ciprofloxacin HCl [Ciprofloxacin Tab] 500 mg PO BID #20 tablet - Follow Up or Referral - Forms/Instructions Exam - Constitutional Vitals: Period Temp Pulse Resp BP Sys/Lopez Pulse Ox Last 24 Hr 98.1 F-99.5 F 57-66 18-20 138-157/81-95 95-97 Discharge Results Procedures and tests throughout hospitalization: Pending Orders 01/19/17 17:51 Blood Culture Routine 01/20/17 10:38 Blood Culture Stat Labs on day of discharge: Labs from last 24 hours 01/24/17 01/23/17 07:56 14:18 Sodium 145 Potassium 3.4 L 3.4 L Chloride 109 H Carbon Dioxide 29 Anion Gap 10.4 BUN 14 Creatinine 1.10 GFR Calculation 81 BUN/Creatinine Ratio 12.00 Glucose 83 Calculated Osmolality 287.7 Calcium 9.0 Preliminary micro results at discharge 01/20/17 10:38 Blood Culture - Preliminary Blood No growth at 3 days 01/20/17 10:38 Blood Culture - Preliminary Blood No growth at 3 days 01/19/17 17:51 Blood Culture - Preliminary Blood No growth at 3 days 01/19/17 17:51 Blood Culture - Preliminary Blood No growth at 3 days DS: Provider Date of admission: 01/19/17 16:09 Primary care physician: . No PCP Attending physician on admission: Clark Alcantara MD Consults: 01/19/17 17:21 Consult to Dietitian [CONS] Routine Reason for Dietitian: Supplements and/or Snacks 01/20/17 10:58 Consult to Pharmacy [CONS] Routine Reason for Pharmacy Consult: Dose/Manage Vancomycin 01/23/17 12:36 Consult to Physician [CONS] Routine Comment: MRSA UTI Consulting Provider: Marisa Asencio Person Notified: Michelle Date Notified: 01/23/17 Time Notified: 13:20 Discharging clinician: Mira Mccoy CNP <Vee Bob - Last Filed: 01/24/17 15:25> Discharge Plan - Discharge Data Condition at Discharge: Stable Discharge Diet: advance to your usual diet Activity: resume usual activities as tolerated - Forms/Instructions Additional Discharge Instructions: follow with PCP in 1week Exam - Constitutional General appearance: no acute distress, other (mute) - Head Head exam: Present: normal inspection - Eye Eye exam: Present: EOMI - Respiratory Respiratory exam: Present: clear to auscultation bilaterally - Cardiovascular Cardiovascular exam: Present: regular rate and rhythm - GI/Abdominal GI/Abdominal exam: Present: normal bowel sounds - Extremities Exam Extremities exam: Present: normal inspection
[2017-01-24] MEDS ORDERED: POTASSIUM CHLORIDE 20 MEQ TABLET PO ONE (12:12)
[2017-01-24] MEDS ORDERED: LISINOPRIL 10 MG TABLET PO SCH (15:00)
== END 2017-01-24 16:10 | disposition home health service (06) | DRG 872 ==
LOC: EDUNIT# → EDBD → N.ED 14:10 → SUATTDRO 16:09 → N.EDINP 16:09 → N.ICU 16:39 → N.5E 01-22 16:51
PROVIDERS: ADMIT Family Medicine; ATTEND Internal Medicine